=== PATIENT | female | born 1985 | race Caucasian/White ===

== ENCOUNTER 2021-09-25 09:29 | Outpatient (CLI) | payer OTHER ==
[2021-09-25 23:17] LABS: SARS-CoV-2 PCR by NAA Not Detected (NotDetected)
== END 2021-09-25 09:30 | disposition home or self-care (01) ==
LOC: CSHLAB 09:29
PROVIDERS: ATTEND Obstetrics & Gynecology
DX: Z01.812 Encounter for preprocedural laboratory examination (principal); Z20.822 Contact with and (suspected) exposure to COVID-19
CPT/HCPCS: U0003; U0005

== ENCOUNTER 2021-09-30 05:38 | Inpatient (IN) | payer BC, OTHER ==
[2021-09-30 06:11] VITALS: BMI 25.0
[2021-09-30] MEDS ORDERED: Docusate 100 MG CAP PO PRN (06:11)
[2021-09-30] MEDS ORDERED: CEFAZOLIN 2 GM in Premix Bag 1 BAG IVPB SCH (06:11)
[2021-09-30] MEDS ORDERED: Promethazine HCl 25 MG/ML VIAL IM PRN ×3 (06:11→11:14)
[2021-09-30] MEDS ORDERED: Bicitra 30 ML UDCUP PO PRN (06:11)
[2021-09-30] MEDS ORDERED: Ondansetron PF 4 MG/2 ML Vial IVP PRN ×3 (06:11→11:14)
[2021-09-30] MEDS ORDERED: Famotidine/PF 20 mg/2ml Vial SLOW IVP PRN (06:11)
[2021-09-30] MEDS ORDERED: hydrALAZINE 20 MG/ML VIAL SLOW IVP PRN ×2 (06:11→11:14)
[2021-09-30] MEDS ORDERED: Lactated Ringer's 1,000 ML IV SCH (06:11)
[2021-09-30 06:55] LABS: Hemoglobin 11.7 g/dL (12.0-15.5); Mean Corpuscular HGB CONC 33.5 g/dL (32.0-36.0); Mean Corpuscular Hemoglobin 30.1 pg (27.0-33.0); Mean Corpuscular Volume 89.7 fl (81.6-98.3); Mean Platelet Volume 10.9 fl (7.4-10.4); Platelet Count 179 10x3/uL (150-450); RBC Distribution Width 13.2 % (11.5-14.5); Red Blood Cell (RBC) Count 3.89 10x6/uL (3.90-5.03)
[2021-09-30] MEDS ORDERED: Morphine PF 10 MG/10 ML VIAL ONE (07:12)
[2021-09-30] MEDS ORDERED: Oxytocin 10 UNITS/ML VIAL ONE (07:12)
[2021-09-30] MEDS ORDERED: Phenylephrine 40 MG/NS 250 ML 250 ML ONE (07:12)
[2021-09-30] MEDS ORDERED: PHENYLEPHRINE-NS 100 MCG/ML 10 ML SYRINGE ONE (07:12)
[2021-09-30 07:29] LABS: Hep B Surf Ag Non-Reactive S/CO (NonReactive)
[2021-09-30 07:30] LABS: Syphilis Antibody Nonreactive (Nonreactive); Syphilis Antibody Index 0.04 S/CO (<1.00 Non-Reactive)
[2021-09-30 07:32] LABS: HBSAg Index 0.22 S/CO (0-0.99)
[2021-09-30] MEDS ORDERED: Naloxone HCl 0.4 mg/ml Vial IV PRN (09:04)
[2021-09-30] MEDS ORDERED: Fentanyl 100 MCG/2 ML VIAL SLOW IVP PRN (09:04)
[2021-09-30] MEDS ORDERED: Ondansetron HCl/PF 4 MG/2 ML Vial IVP PRN (09:04)
[2021-09-30] MEDS ORDERED: HYDROmorphone 2 MG/ML VIAL SLOW IVP PRN (09:04)
[2021-09-30] MEDS ORDERED: Promethazine HCl 25 MG SUPP PR PRN (09:04)
[2021-09-30] MEDS ORDERED: Naloxone HCl 0.4 mg/ml Vial IVP PRN ×2 (09:04)
[2021-09-30] MEDS ORDERED: Hydrocerin (Eucerin) Cream 120 gm Jar TOP PRN (09:04)
[2021-09-30] MEDS ORDERED: diphenhydrAMINE 50 MG/ML VIAL IVP PRN (09:04)
[2021-09-30] MEDS ORDERED: Meperidine HCl/PF 25 MG/ML VIAL SLOW IVP PRN (09:04)
[2021-09-30] MEDS ORDERED: Ketorolac Tromethamine 30 MG/ML VIAL IVP SCH (09:15)
[2021-09-30] MEDS ORDERED: Communication Order-Pharmacy FS SCH (09:15)
[2021-09-30] MEDS: Ketorolac Tromethamine 30 MG/ML VIAL IVP PRN ×2 (11:10→17:49)
[2021-09-30] MEDS ORDERED: Boostrix 0.5 ML (Tdap) VIAL IM ONE (11:14)
[2021-09-30] MEDS ORDERED: diphenhydrAMINE 25 MG CAP PO PRN (11:14)
[2021-09-30] MEDS ORDERED: Lanolin Ointment 7 GM TUBE TOP PRN (11:14)
[2021-09-30] MEDS ORDERED: Ferrous Sulfate 325 MG TAB PO SCH (11:30)
[2021-09-30] MEDS: Simethicone Chewable 80 MG TAB PO PRN ×2 (17:52→21:36)
[2021-09-30] MEDS: Ferrous Sulfate 325 MG TAB PO SCH (19:14)
[2021-09-30] MEDS ORDERED: HYDROcodone/Acetaminophen 5/325 mg Tablet PO PRN (21:15)
[2021-09-30] MEDS: Docusate Calcium (SURFAK) 240 MG CAP PO SCH (21:32)
[2021-10-01] MEDS: Ketorolac Tromethamine 30 MG/ML VIAL IVP PRN (01:34)
[2021-10-01 05:15] LABS: Hemoglobin 9.7 g/dL (12.0-15.5); Mean Corpuscular HGB CONC 32.9 g/dL (32.0-36.0); Mean Corpuscular Hemoglobin 30.3 pg (27.0-33.0); Mean Corpuscular Volume 92.2 fl (81.6-98.3); Mean Platelet Volume 11.4 fl (7.4-10.4); Platelet Count 151 10x3/uL (150-450); RBC Distribution Width 12.9 % (11.5-14.5); White Blood Cell (WBC) Count 13.7 10x3/uL (3.5-10.5)
[2021-10-01] MEDS: Docusate Calcium (SURFAK) 240 MG CAP PO SCH ×2 (07:52→21:27)
[2021-10-01] MEDS: Ferrous Sulfate 325 MG TAB PO SCH ×2 (07:52→21:27)
[2021-10-01] MEDS: HYDROcodone/Acetaminophen 5/325 mg Tablet PO PRN (07:59)
[2021-10-01] MEDS: Ibuprofen 800 MG TAB PO SCH ×2 (14:09→21:27)
[2021-10-02] MEDS: Ibuprofen 800 MG TAB PO SCH (05:21)
[2021-10-02 08:10] VITALS: BP 117/72; TEMP 98.1
[2021-10-02] MEDS: Ferrous Sulfate 325 MG TAB PO SCH (08:10)
[2021-10-02] MEDS: Docusate Calcium (SURFAK) 240 MG CAP PO SCH (08:10)
[2021-10-02] MEDS: HYDROcodone/Acetaminophen 5/325 mg Tablet PO PRN (13:03)
== END 2021-10-02 14:15 | disposition home or self-care (01) | DRG 788 ==
LOC: CSHLD 05:38 → CSHPP 13:05
PROVIDERS: ADMIT Obstetrics & Gynecology; ATTEND Obstetrics & Gynecology
PROC: 10D00Z1 Extraction of Products of Conception, Low, Open Approach (ICD-10-PCS; principal; 2021-09-30)
DX: O34.211 Maternal care for low transverse scar from previous cesarean delivery (principal); Z3A.39 39 weeks gestation of pregnancy; Z37.0 Single live birth
CPT/HCPCS: 36415; 85027; 86780; 86850; 86900; 86901; 87340; J1885; J2274; J2590; J7120; S0028